=== PATIENT | male | born 1980 | race Caucasian/White ===

== ENCOUNTER 2017-06-21 03:48 | Emergency (ER) | payer MEDICAID ==
[2017-06-21 03:55] VITALS: BP 134/84
[2017-06-21] MEDS ORDERED: AMOXICILLIN TR/POT CLAVULANATE 500-125 MG TAB PO ONE (03:59)
--- NOTE | 2017-06-21 04:02 | ER Document Report ---
ED General - General Chief Complaint: Mouth Problem Stated Complaint: HEAD, MOUTH PAIN Time Seen by Provider: 06/21/17 03:50 Mode of Arrival: Ambulatory Information source: Patient Notes: 36-year-old male presents with complaints of dental pain on the right side right facial pain right ear pain. Patient notes symptoms have been ongoing for 2 weeks patient denies any fevers or chills patient denies any nausea or vomiting TRAVEL OUTSIDE OF THE [place] IN LAST 30 DAYS: No - HPI Onset: Other Onset/Duration: Persistent Quality of pain: Achy Severity: Mild Pain Level: 1 Associated symptoms: Earache, Headache, Other Exacerbated by: Denies Relieved by: Denies Similar symptoms previously: No Recently seen / treated by doctor: No - Related Data Allergies/Adverse Reactions: spiders Allergy (Uncoded 04/11/16 02:33) Past Medical History - Social History Smoking Status: Never Smoker Cigarette use (# per day): No Chew tobacco use (# tins/day): No Smoking Education Provided: No Family History: Reviewed & Not Pertinent Patient has suicidal ideation: No Patient has homicidal ideation: No Pulmonary Medical History: Reports: Hx Asthma, Hx Bronchitis Renal/ Medical History: Denies: Hx Peritoneal Dialysis - Immunizations Immunizations up to date: Yes Hx Diphtheria, Pertussis, Tetanus Vaccination: No Review of Systems - Review of Systems Notes: REVIEW OF SYSTEMS: CONSTITUTIONAL : Denies fever, chills, or sweats. Denies recent illness. EENT: Admits to dental pain right ear pain CARDIOVASCULAR: Denies chest pain. Denies palpitations or racing or irregular heart beat. Denies ankle edema. RESPIRATORY: Denies cough, cold, or chest congestion. Denies shortness of breath, difficulty breathing, or wheezing. GASTROINTESTINAL: Denies abdominal pain or distention. Denies nausea, vomiting , or diarrhea. Denies blood in vomitus, stools, or per rectum. Denies black, tarry stools. Denies constipation. GENITOURINARY: Denies difficulty urinating, painful urination, burning, frequency, blood in urine, or discharge. MUSCULOSKELETAL: Denies back or neck pain or stiffness. Denies joint pain or swelling. SKIN: Denies rash, lesions or sores. HEMATOLOGIC : Denies easy bruising or bleeding. LYMPHATIC: Denies swollen, enlarged glands. NEUROLOGICAL: Admits to headache PSYCHIATRIC: Denies anxiety or stress. Denies depression, suicidal ideation, or homicidal ideation. ALL OTHER SYSTEMS REVIEWED AND NEGATIVE. Dictation was performed using [employer] voice recognition software PHYSICAL EXAMINATION: GENERAL: Well-appearing, well-nourished and in no acute distress. HEAD: Atraumatic, normocephalic. EYES: Pupils equal round and reactive to light, extraocular movements intact, sclera anicteric, conjunctiva are normal. ENT: Decay noted of tooth 6 tender to palpation left TM is clear right TM is pustular NECK: Normal range of motion, supple without lymphadenopathy LUNGS: Breath sounds clear to auscultation bilaterally and equal. No wheezes rales or rhonchi. HEART: Regular rate and rhythm without murmurs ABDOMEN: Soft, nontender, nondistended abdomen. No guarding, no rebound. No masses appreciated. Musculoskeletal: Normal range of motion, no pitting or edema. No cyanosis. NEUROLOGICAL: Cranial nerves grossly intact. Normal speech, normal gait. Normal sensory, motor exams PSYCH: Normal mood, normal affect. SKIN: Warm, Dry, normal turgor, no rashes or lesions noted. Physical Exam - Vital signs Vitals: Temp Pulse Resp BP Pulse Ox 98.6 F 95 18 134/84 H 97 06/21/17 03:52 06/21/17 03:52 06/21/17 03:52 06/21/17 03:52 06/21/17 03:52 Course - Re-evaluation Re-evalutation: 06/21/17 04:01 Patient has obvious decay of his teeth however his right TM is definitely infected. Patient will be started on antibiotics given pain control is otherwise well-appearing no distress After performing a Medical Screening Examination, I estimate there is LOW risk for a DEEP SPACE INFECTION (e.g., NICKY'S ANGINA OR RETROPHARYNGEAL ABSCESS), MENINGITIS, INTRACRANIAL HEMORRHAGE, or AIRWAY COMPROMISE, thus I consider the discharge disposition reasonable. Also, there is no evidence or peritonitis, sepsis, or toxicity. I have reevaluated this patient multiple times and no significant life threatening changes are noted. The patient and I have discussed the diagnosis and risks, and we agree with discharging home with close follow-up with the understanding that symptoms and presentations can change. We also discussed returning to the Emergency Department immediately if new or worsening symptoms occur. We have discussed the symptoms which are most concerning (e.g., changing or worsening pain, trouble swallowing or breathing, neck stiffness or fever) that necessitate immediate return. - Vital Signs Vital signs: Temp Pulse Resp BP Pulse Ox 98.6 F 95 18 134/84 H 97 06/21/17 03:52 06/21/17 03:52 06/21/17 03:52 06/21/17 03:52 06/21/17 03:52 Discharge - Discharge Clinical Impression: Dental caries Otitis media Qualifiers: Otitis media type: unspecified Chronicity: unspecified Laterality: right Qualified Code(s): H66.91 - Otitis media, unspecified, right ear Condition: Stable Disposition: HOME, SELF-CARE Instructions: Otitis Media ([facility]) Additional Instructions: Follow up with your physician tomorrow for further care or return to the ED IMMEDIATELY if symptoms worsen or new concerns occur. If you cannot afford to follow up with your primary care physician a list of low cost clinics have been provided at the end of your discharge papers as well. Prescriptions: Amox Tr/Potassium Clavulanate [Augmentin 875-125 mg Tablet] 1 tab PO BID #20 tablet Tramadol HCl 50 mg PO Q8 #10 tablet
== END 2017-06-21 04:10 | disposition home or self-care (01) ==
LOC: ER 03:48
DX: K02.9 Dental caries, unspecified (principal); K08.89 Other specified disorders of teeth and supporting structures; R51 Headache; H92.01 Otalgia, right ear
CPT/HCPCS: 99283; J3490

== ENCOUNTER 2018-02-10 21:04 | Emergency (ER) | payer MEDICAID ==
[2018-02-10] MEDS: HYDROMORPHONE HCL INJ/PF 2 MG/ML AMPULE IM ONE (21:44)
--- NOTE | 2018-02-10 21:48 | ER Document Report ---
ED General - General Chief Complaint: Abscess Stated Complaint: ARM SWELLING Time Seen by Provider: 02/10/18 21:35 Notes: Patient is a 37-year-old male current every day tobacco user but no chronic medical problems who presents with 4 days of progressively worsening swelling and pain to his right forearm. Patient states that he cut the area while working 4 days ago and since that time has noticed progressively worsening swelling and pain to the area. He describes a severe, constant, throbbing pain. Touching the area moving the arm worsens the pain. Nothing improves the pain. He denies any history of the same. He denies any fever or constitutional symptoms. He has not seen his primary doctor regarding today's concerns. He is right-hand dominant. He denies any limited range of motion of the elbow or hand. TRAVEL OUTSIDE OF THE [place] IN LAST 30 DAYS: No - Related Data Allergies/Adverse Reactions: spiders Allergy (Uncoded 04/11/16 02:33) Past Medical History - General Information source: Patient - Social History Smoking Status: Current Every Day Smoker Cigarette use (# per day): Yes - 1-2 packs per day Smoking Education Provided: Yes - Smoking cessation counseling was provided for 4 minutes at the bedside Frequency of alcohol use: Occasional Drug Abuse: None Lives with: Spouse/Significant other Family History: Reviewed & Not Pertinent Pulmonary Medical History: Reports: Hx Asthma, Hx Bronchitis Renal/ Medical History: Denies: Hx Peritoneal Dialysis - Immunizations Immunizations up to date: Yes Hx Diphtheria, Pertussis, Tetanus Vaccination: No Review of Systems - Review of Systems Notes: Constitutional: Negative for fever. HENT: Negative for sore throat. Eyes: Negative for visual changes. Cardiovascular: Negative for chest pain. Respiratory: Negative for shortness of breath. Gastrointestinal: Negative for abdominal pain, vomiting or diarrhea. Genitourinary: Negative for dysuria. Musculoskeletal: Positive for right forearm pain Skin: Positive for right forearm abscess Neurological: Negative for headaches, weakness or numbness. 10 point ROS negative except as marked above and in HPI. Physical Exam - Vital signs Vitals: Temp Pulse Resp BP Pulse Ox 99.8 F 116 H 18 105/63 98 02/10/18 21:10 02/10/18 21:10 02/10/18 21:10 02/10/18 21:10 02/10/18 21:10 Interpretation: Tachycardic Notes: PHYSICAL EXAMINATION: GENERAL: Appears to be quite uncomfortable but no acute distress HEAD: Atraumatic, normocephalic. EYES: Pupils equal round and reactive to light, extraocular movements intact, sclera anicteric, conjunctiva are normal. ENT: nares patent, oropharynx clear without exudates. Moist mucous membranes. NECK: Normal range of motion, supple without lymphadenopathy LUNGS: Breath sounds clear to auscultation bilaterally and equal. No wheezes rales or rhonchi. HEART: Regular rate and rhythm without murmurs ABDOMEN: Soft, nontender, normoactive bowel sounds. No guarding, no rebound. No masses appreciated. EXTREMITIES: Normal range of motion, no pitting or edema. No cyanosis. NEUROLOGICAL: No focal neurological deficits. Moves all extremities spontaneously and on command. PSYCH: Normal mood, normal affect. SKIN: Warm, Dry, normal turgor, there is a 4 x 3 cm abscess on the proximal right dorsal forearm. Surrounding erythema. No axillary lymphadenopathy. Course - Re-evaluation Re-evalutation: 02/10/18 21:47 Patient presents with a large right forearm abscess started apparently from an abrasion sustained 3 days ago. There is a surrounding area of cellulitis. Patient is otherwise nontoxic in appearance, does not meet sepsis criteria. An incision and drainage was initiated with copious amounts of purulent drainage coming from the wound. However despite giving the patient hydromorphone intramuscularly and numbing the area with lidocaine, the patient was unable to tolerate the procedure. We therefore proceeded with procedural sedation using ketamine. The remainder of the incision and drainage was completed, the wound was irrigated and packed. Patient was started on trimethoprim sulfamethoxazole and cephalexin for coverage of MRSA and strep. There is no evidence of a spreading cellulitis up to the axilla or down to the hand, no indication for hospitalization at this time. At this time will discharge with return precautions and follow-up recommendations. Verbal discharge instructions given a the bedside and opportunity for questions given. Medication warnings reviewed. Patient is in agreement with this plan and has verbalized understanding of return precautions and the need for primary care follow-up in the next 24-72 hours. 02/10/18 22:26 - Vital Signs Vital signs: Temp Pulse Resp BP Pulse Ox 99.8 F 115 H 10 L 116/73 96 02/10/18 21:10 02/10/18 23:05 02/10/18 23:05 02/10/18 23:05 02/10/18 23:05 Procedures - Conscious Sedation Conscious sedation Time started: 22:50 Time completed: 23:10 Consent obtained: Yes Indication: Male male with Prior complications: Procedural sedation Normal healthy pt.: P1. - ASA Classification Airway Evaluation: Normal anatomy Mallampati Classification: Class 1 Used during procedure: Suction available, IV access obtained, Pulse ox on pt., gold nib grinder on pt. Medications administered: Ketamine Reversal agents: None I personally performed/intraservice time: Sedation, Procedure, 30 min or less Complications: No - Incision and Drainage Right Arm Time completed: 23:00 Type: Complex Anesthetic type: 1% Lidocaine mL's of anesthetic: 5 Blade size: 11 I&D procedure: Betadine prep applied, Chlorprep applied, Iodoform packing placed Incision Method: Incision made by scalpel Amount/type of drainage: 30 cc of purulent drainage Notes: 02/10/18 23:47 The area was prepped and draped using standard sterile precautions. After initially making a 1 cm incision and expressing approximately 20 cc of purulent drainage the patient could no longer tolerate the pain of the procedure. He was therefore sedated using ketamine. The incision was then expanded to a cruciate incision. The remainder of the purulent drainage was expressed by direct pressure. The wound was then explored using forceps. 100 cc of saline irrigation was instilled. The wound was then packed with iodoform gauze. Patient tolerated the procedure well. No complications. Discharge - Discharge Clinical Impression: Abscess of right arm, Right arm cellulitis Condition: Good Disposition: HOME, SELF-CARE Additional Instructions: You were seen for an abscess that required drainage. Please clean this area with soap and water twice daily and apply a topical antibiotic. Dress the area after each cleaning. Please return if you develop fever, vomiting, the pain at the site worsens, you notice spreading redness from the area, or you have any other symptoms that are concerning to you. Prescriptions: Cephalexin Monohydrate [Keflex 500 mg Capsule] 500 mg PO Q6H 5 Days capsule Sulfamethoxazole/Trimethoprim [Bactrim Ds Tablet] 2 tab PO BID #28 tablet Forms: Return to Work
[2018-02-10] MEDS: HYDROMORPHONE HCL INJ/PF 2 MG/ML AMPULE ONE (21:49)
[2018-02-10] MEDS ORDERED: KETAMINE HCL INJ 500 MG/10 ML VIAL IV ONE (22:23)
[2018-02-10] MEDS: KETAMINE HCL INJ 500 MG/10 ML VIAL IV ONE (23:00)
[2018-02-11 00:02] VITALS: BP 120/74
[2018-02-11] MEDS: SULFAMETHOXAZOLE/TRIMETHOPRIM 800-160 MG TABLET PO ONE (00:06)
[2018-02-11] MEDS: CEPHALEXIN 500 MG CAPSULE PO ONE (00:06)
[2018-02-11] MEDS: HYDROCODONE/ACETAMINOPHEN 5-325 MG (6 TAB/ER DISP) PO PRN (00:07)
== END 2018-02-11 00:05 | disposition home or self-care (01) ==
LOC: ER 21:04
DX: L02.413 Cutaneous abscess of right upper limb (principal); L03.113 Cellulitis of right upper limb; F17.210 Nicotine dependence, cigarettes, uncomplicated; Z71.6 Tobacco abuse counseling; Z91.038 Other insect allergy status; J45.909 Unspecified asthma, uncomplicated
CPT/HCPCS: 99283; 96372; 10060; A6266; J3490 ×2; J1170

== ENCOUNTER 2018-02-26 19:28 | Inpatient (IN) | payer MEDICAID ==
[2018-02-26] MEDS ORDERED: HYDROMORPHONE HCL INJ/PF 2 MG/ML AMPULE IV ONE ×2 (21:17→23:11)
[2018-02-26] MEDS ORDERED: NORMAL SALINE 1000 ML 1,000 ML IV ONE (21:17)
[2018-02-26 22:04] LABS: ABSOLUTE BASOPHILS # (AUTO) 0.1 10^3/uL (0.0-0.2); ABSOLUTE EOSINOPHILS # (AUTO) 0.3 10^3/uL (0.0-0.6); ABSOLUTE MONOCYTES (AUTO) 1.2 10^3/uL (0.1-1.4); ABSOLUTE NEUT (AUTO) 6.5 10^3/uL (1.7-8.2); BASOPHILS % (AUTO) 0.7 % (0-2); EOSINOPHILS % (AUTO) 2.9 % (0-6); HEMOGLOBIN 12.7 g/dL (13.5-17.0); LYMPHOCYTES % (AUTO) 26.8 % (13-45); MEAN CORPUSCULAR HEMOGLOBIN 27.3 pg (27.0-33.4); MEAN CORPUSCULAR HGB CONC 33.4 g/dL (32.0-36.0); MEAN CORPUSCULAR VOLUME 82 fl (80-97); PLATELET COUNT 370 10^3/uL (150-450); RED BLOOD COUNT 4.65 10^6/uL (4.35-5.55); RED CELL DISTRIBUTION WIDTH 16.3 % (11.5-14.0); SEGMENTED NEUTROPHILS % (AUTO) 58.6 % (42-78); TOTAL CELLS COUNTED % (AUTO) 100 %
[2018-02-26] MEDS ORDERED: VANCOMYCIN HCL INJ 1000 MG VIAL IV ONE (22:14)
[2018-02-26 22:25] LABS: ANION GAP 9 (5-19); BLOOD UREA NITROGEN 11 mg/dL (7-20); CALCIUM 9.1 mg/dL (8.4-10.2); CARBON DIOXIDE 34 mmol/L (22-30); CHLORIDE 93 mmol/L (98-107); GLUCOSE 91 mg/dL (75-110); POTASSIUM 3.8 mmol/L (3.6-5.0); SODIUM 135.6 mmol/L (137-145)
--- NOTE | 2018-02-27 01:24 | ER Document Report ---
ED Wound - General Chief Complaint: Wound Recheck Stated Complaint: WOUND COMPLAINT Time Seen by Provider: 02/26/18 20:57 Mode of Arrival: Ambulatory Information source: Patient Notes: Patient is a 37-year-old male who presents 16 days post I&D to his right forearm. Patient reports that he was seen here in this ED on 422 and had a I&D performed for an abscess. Patient reports that over the last 1-2 days he has been having increasing pain, foul smell and swelling to the area. He denies any fever. He reports that he finished all his antibiotics (Keflex and Bactrim) . Patient denies any past medical history. Patient is not a diabetic. TRAVEL OUTSIDE OF THE [place] IN LAST 30 DAYS: No - Related Data Allergies/Adverse Reactions: spiders Allergy (Uncoded 04/11/16 02:33) Past Medical History - General Information source: Patient - Social History Smoking Status: Current Every Day Smoker Chew tobacco use (# tins/day): No Frequency of alcohol use: None Drug Abuse: None Family History: Reviewed & Not Pertinent Patient has suicidal ideation: No Patient has homicidal ideation: No Pulmonary Medical History: Reports: Hx Asthma, Hx Bronchitis Renal/ Medical History: Denies: Hx Peritoneal Dialysis - Immunizations Immunizations up to date: Yes Hx Diphtheria, Pertussis, Tetanus Vaccination: No Review of Systems - Review of Systems Constitutional: No symptoms reported EENT: No symptoms reported Cardiovascular: No symptoms reported Respiratory: No symptoms reported Gastrointestinal: No symptoms reported Genitourinary: No symptoms reported Male Genitourinary: No symptoms reported Musculoskeletal: See HPI Skin: See HPI Hematologic/Lymphatic: No symptoms reported Neurological/Psychological: No symptoms reported Physical Exam - Vital signs Vitals: Temp Pulse Resp BP Pulse Ox 99.3 F 100 18 122/72 97 02/26/18 19:44 02/26/18 19:44 02/26/18 19:44 02/26/18 19:44 02/26/18 19:44 - Notes Notes: PHYSICAL EXAMINATION: GENERAL: Well-appearing, well-nourished and in no acute distress. HEAD: Atraumatic, normocephalic. EYES: Pupils equal round and reactive to light, extraocular movements intact, conjunctiva are normal. ENT: Nares patent. Moist mucous membranes. NECK: Normal range of motion, supple without lymphadenopathy. LUNGS: Breath sounds clear to auscultation bilaterally and equal. No wheezes rales or rhonchi. HEART: Regular rate and rhythm without murmurs. ABDOMEN: Soft, nontender, nondistended abdomen. No guarding, no rebound. No masses appreciated. Musculoskeletal: Right arm has decreased range of motion at elbow, is able to extend arm but not fully, redness and swelling around site of abscess that was drained on 02/10/18 and extends up into upper arm, there is also tightness in upper arm. NEUROLOGICAL: Cranial nerves grossly intact. Normal speech, normal gait. Normal sensory, motor exams PSYCH: Normal mood, normal affect. SKIN: Warm, Dry, normal turgor, no rashes or lesions noted. Course - Re-evaluation Re-evalutation: 37-year-old male presents with complaint of pain, redness, swelling and foul- smelling odor coming from his right forearm where he had an I&D done 16 days ago. Upon evaluation, patient still has the packing in place from his I&D done here at [facility] on 02/10/18. Patient reports that he did finish his Keflex and Bactrim. Patient denies any fevers but reports that 1-2 days ago he started having increasing redness and pain. There is an obvious infection and cellulitis on initial examination. Patient was medicated with 1 mg of Dilaudid after IV was placed and labs are drawn. Packing was removed and a very foul odor was noted. There was no purulent drainage after the packing was removed however there was blood oozing from the site. The site of the I&D is open. There is redness and induration noted up into the patient's upper arm. I consulted Dr. Anand, general surgery regarding this patient who is requesting that I CT the patient's right arm. CT shows no abscess formation, no gas formation. Will start vancomycin based on patient's weight. Dr. Anand, general surgery agrees to come see patient and admit to medical floor. - Vital Signs Vital signs: Temp Pulse Resp BP Pulse Ox 98.5 F 88 16 111/58 L 96 02/27/18 05:01 02/27/18 02:54 02/27/18 02:54 02/27/18 02:54 02/27/18 02:54 - Laboratory Result Diagrams: 02/26/18 21:55 02/26/18 21:55 Laboratory results interpreted by me: 02/26/18 02/26/18 21:55 21:55 WBC 11.0 H Hgb 12.7 L RDW 16.3 H Sodium 135.6 L Chloride 93 L Carbon Dioxide 34 H Discharge - Discharge Clinical Impression: Cellulitis of arm, right Condition: Stable Disposition: ADMITTED INPATIENT Admitting Provider: Surgicalist Unit Admitted: Medical Floor
--- NOTE | 2018-02-27 02:10 | RADIOLOGY REPORT (SQ) ---
EXAM DESCRIPTION: CT, right upper extremity with IV contrast CLINICAL HISTORY: 37 years Male, evaluate for abscess COMPARISON: None. TECHNIQUE: IV contrast. Axial imaging from of the distal right humeral shaft to the proximal right hand. Coronal and sagittal reformat. This exam was performed according to our departmental dose-optimization program, which includes automated exposure control, adjustment of the mA and/or kV according to patient size and/or use of iterative reconstruction technique. FINDINGS: Moderate subcutaneous soft tissue edema at the level of the right elbow, and proximal right upper arm. No evidence of bone or joint involvement. No abscess and no drainable fluid collection. No fascial gas bubbles. IMPRESSION: Moderate edema/cellulitis of the right upper extremity.
--- NOTE | 2018-02-27 06:21 | PDOC H&P ---
History of Present Illness Admission Date/PCP: 02/27/18 03:06 Patient complains of: Right upper extremity pain and swelling History of Present Illness: ZULLY OLVERA is a 37 year old male who is 2 weeks status post incision and drainage of a right upper extremity abscess. 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 He presented to the emergency department for drainage. The patient had packing placed in the wound. The patient has not removed his packing for 2 weeks. Patient was placed on antibiotics, however he continued to worsen. The patient reports increasing redness, swelling, pain, and drainage. The patient' s packing was removed in the emergency department. Patient denies any overt fevers and chills, chest pain, shortness of breath, dizziness, orthostasis, abdominal pain, nausea, vomiting. Movement of his arm makes the pain worse. Nothing makes it better. The patient reports that it is difficult to straighten his arm. Past Medical History Pulmonary Medical History: Reports: Asthma, Bronchitis Past Surgical History Past Surgical History: Reports: Other - Incision and drainage of a right upper extremity abscess Social History Information Source: Patient Smoking Status: Current Every Day Smoker Hx Recreational Drug Use: No Family History Family History: Reviewed & Not Pertinent Parental Family History Reviewed: Yes Children Family History Reviewed: Yes Sibling(s) Family History Reviewed.: Yes Medication/Allergy Home Medications: Prednisone [Deltasone 20 mg Tablet] 3 tab PO DAILY 4 Days tablet 08/09/16 Albuterol Sulfate [Ventolin HFA] 2 puff IH Q4HP PRN #17 gm 09/17/16 Azithromycin [Zithromax 250 mg Tablet] 250 mg PO ASDIR PRN #6 tablet 09/17/16 Prednisone [Deltasone 20 mg Tablet] 60 mg PO DAILY #12 tablet 09/17/16 Amox Tr/Potassium Clavulanate [Augmentin 875-125 mg Tablet] 1 tab PO BID #20 tablet 06/21/17 Tramadol HCl 50 mg PO Q8 #10 tablet 06/21/17 Cephalexin Monohydrate [Keflex 500 mg Capsule] 500 mg PO Q6H 5 Days capsule Sulfamethoxazole/Trimethoprim [Bactrim Ds Tablet] 2 tab PO BID #28 tablet Allergies/Adverse Reactions: spiders Allergy (Uncoded 04/11/16 02:33) Review of Systems Constitutional: ABSENT: chills, fever(s), headache(s), weakness Eyes: ABSENT: visual disturbances Ears: ABSENT: hearing changes Nose, Mouth, and Throat: ABSENT: sore throat Cardiovascular: ABSENT: chest pain, dyspnea on exertion, palpitations Respiratory: ABSENT: cough, dyspnea, hemoptysis Gastrointestinal: ABSENT: abdominal pain, bloating, constipation Genitourinary: ABSENT: dysuria Musculoskeletal: PRESENT: joint swelling, other - Pain in right upper extremity Integumentary: PRESENT: erythema, wounds - Right upper extremity Neurological: ABSENT: abnormal gait, abnormal speech, confusion, convulsions Psychiatric: ABSENT: anxiety, hallucinations Physical Exam Vital Signs: Temp Pulse Resp BP Pulse Ox 98.5 F 88 16 111/58 L 96 02/27/18 05:01 02/27/18 02:54 02/27/18 02:54 02/27/18 02:54 02/27/18 02:54 General appearance: PRESENT: no acute distress Head exam: PRESENT: atraumatic, normocephalic Eye exam: PRESENT: EOMI, PERRLA. ABSENT: conjunctival injection, scleral icterus Mouth exam: PRESENT: moist, neck supple Neck exam: ABSENT: lymphadenopathy, meningismus, tenderness, thyromegaly, tracheal deviation Respiratory exam: PRESENT: clear to auscultation chin. ABSENT: chest wall tenderness, rales, rhonchi, tachypnea, wheezes Cardiovascular exam: PRESENT: RRR Pulses: PRESENT: normal radial pulses Vascular exam: PRESENT: normal capillary refill. ABSENT: pallor GI/Abdominal exam: PRESENT: soft. ABSENT: distended, hernia, tenderness Rectal exam: PRESENT: deferred Musculoskeletal exam: PRESENT: tenderness, other - Right upper extremity with erythema and induration extending from below the elbow joint to on the bicep anteriorly. There is a small, 2 cm wound to the forearm. There is no purulence. There is no fluctuance.. ABSENT: full ROM - Decreased range of motion of the right elbow Neurological exam: PRESENT: alert, awake, oriented to person, oriented to place , oriented to time, oriented to situation, CN II-XII grossly intact. ABSENT: motor sensory deficit Psychiatric exam: PRESENT: normal mood. ABSENT: agitated, anxious, depressed Skin exam: PRESENT: erythema. ABSENT: cyanosis, jaundice, rash Results Laboratory Results: White blood cell count of 11,000. CT scan reviewed by me. There is no sign of fluid collection, abscess, or subcutaneous emphysema. Impressions: Upper Extremity CT 02/26/18 22:23 IMPRESSION: Moderate edema/cellulitis of the right upper extremity. Assessment & Plan - Diagnosis (1) Cellulitis of arm, right Is this a current diagnosis for this admission?: Yes - Plan Summary Plan Summary: This is a 37-year-old male status post incision and drainage of an abscess of the right upper extremity. She had packing placed, but failed to remove his packing. His erythema and induration have worsened. There is no obvious purulence or fluctuance, but he does have pain, and decreased range of motion. I have reviewed the patient's CT scan personally. I cannot find any obvious drainable fluid collections. Will admit the patient and start him on intravenous antibiotics. The patient does not markedly improve, he may require surgical intervention. Further treatments to be determined, depending on the patient's course.
[2018-02-27] MEDS ORDERED: DEXTROSE 50%-WATER 25 GM/50 ML DISP.SYRIN IV PRN ×2 (06:28)
[2018-02-27] MEDS ORDERED: DEXTROSE 40% GEL 15 GM TUBE PO PRN ×2 (06:28)
[2018-02-27] MEDS ORDERED: GLUCAGON,HUMAN RECOMB 1 MG INJ SUBCUT PRN (06:28)
[2018-02-27] MEDS ORDERED: ONDANSETRON HCL INJ/PF 4 MG/2 ML SDV IV PRN (06:29)
[2018-02-27] MEDS ORDERED: VANCOMYCIN HCL 0 MG in DEXTROSE 5%-WATER 250 ML IV NR (06:29)
[2018-02-27] MEDS ORDERED: PIPERACILLIN/TAZOBACTAM 3.375 GM VIAL IV PRN (06:40)
[2018-02-27] MEDS: MORPHINE SULFATE 10 MG/ML INJ IV PRN ×4 (07:23→23:05)
[2018-02-27] MEDS: PIPERACILLIN SODIUM/TAZOBACTAM 3.375 GM in NORMAL SALINE 100 ML IV SCH ×4 (07:24→23:11)
[2018-02-27] MEDS: POTASSI CL 20 MEQ/D5-1/2NS 1L 1,000 ML IV PRN (08:44)
[2018-02-27] MEDS: VANCOMYCIN HCL 1,250 MG in DEXTROSE 5%-WATER 250 ML IV SCH ×2 (10:13→18:01)
[2018-02-27] MEDS: ENOXAPARIN SODIUM INJ 40 MG/0.4 ML DISP.SYRIN SUBCUT SCH (10:52)
[2018-02-27] MEDS: DOCUSATE SODIUM 100 MG CAPSULE PO SCH ×2 (10:52→18:34)
[2018-02-28] MEDS: VANCOMYCIN HCL 1,250 MG in DEXTROSE 5%-WATER 250 ML IV SCH ×3 (02:21→18:08)
[2018-02-28] MEDS: MORPHINE SULFATE 10 MG/ML INJ IV PRN ×5 (04:12→21:07)
[2018-02-28] MEDS: PIPERACILLIN SODIUM/TAZOBACTAM 3.375 GM in NORMAL SALINE 100 ML IV SCH ×3 (05:58→17:19)
[2018-02-28 07:33] LABS: ABSOLUTE BASOPHILS # (AUTO) 0.1 10^3/uL (0.0-0.2); ABSOLUTE EOSINOPHILS # (AUTO) 0.5 10^3/uL (0.0-0.6); ABSOLUTE LYMPHOCYTES (AUTO) 2.8 10^3/uL (0.5-4.7); ABSOLUTE MONOCYTES (AUTO) 1.1 10^3/uL (0.1-1.4); ABSOLUTE NEUT (AUTO) 3.9 10^3/uL (1.7-8.2); BASOPHILS % (AUTO) 1.1 % (0-2); EOSINOPHILS % (AUTO) 6.5 % (0-6); HEMATOCRIT 36.2 % (37.9-51.0); HEMOGLOBIN 12.2 g/dL (13.5-17.0); MEAN CORPUSCULAR HEMOGLOBIN 27.2 pg (27.0-33.4); MEAN CORPUSCULAR HGB CONC 33.7 g/dL (32.0-36.0); MEAN CORPUSCULAR VOLUME 81 fl (80-97); MONOCYTES % (AUTO) 12.5 % (3-13); PLATELET COUNT 355 10^3/uL (150-450); RED BLOOD COUNT 4.47 10^6/uL (4.35-5.55); RED CELL DISTRIBUTION WIDTH 16.3 % (11.5-14.0); SEGMENTED NEUTROPHILS % (AUTO) 46.9 % (42-78); TOTAL CELLS COUNTED % (AUTO) 100 %; WHITE BLOOD COUNT 8.4 10^3/uL (4.0-10.5)
[2018-02-28] MEDS: KETOROLAC TROMETHAMINE INJ/PF 30 MG/1 ML SDV IV PRN ×2 (07:44→18:04)
[2018-02-28 07:56] LABS: ANION GAP 10 (5-19); BLOOD UREA NITROGEN 10 mg/dL (7-20); CALCIUM 9.5 mg/dL (8.4-10.2); CARBON DIOXIDE 27 mmol/L (22-30); CHLORIDE 103 mmol/L (98-107); GLUCOSE 79 mg/dL (75-110); POTASSIUM 4.6 mmol/L (3.6-5.0); SODIUM 139.7 mmol/L (137-145)
[2018-02-28] MEDS: POTASSI CL 20 MEQ/D5-1/2NS 1L 1,000 ML IV PRN (09:49)
[2018-02-28] MEDS: DOCUSATE SODIUM 100 MG CAPSULE PO SCH ×2 (09:59→17:33)
[2018-02-28] MEDS: ENOXAPARIN SODIUM INJ 40 MG/0.4 ML DISP.SYRIN SUBCUT SCH (09:59)
--- NOTE | 2018-02-28 10:42 | PDOC PROGRESS REPORT ---
Subjective Progress Note for:: 02/28/18 Subjective:: Arm still hurts but improved from yesterday. Able to extend the arm better. Swelling has improved. Reason For Visit: CELLULITIS Physical Exam Vital Signs: Temp Pulse Resp BP Pulse Ox 99.1 F 73 16 102/57 L 100 02/28/18 08:25 02/28/18 08:25 02/28/18 08:25 02/28/18 08:25 02/28/18 08:25 Intake & Output 02/27/18 02/28/18 03/01/18 06:59 06:59 06:59 Intake Total 150 Balance 150 Weight 76.4 kg General appearance: PRESENT: no acute distress, cooperative Respiratory exam: PRESENT: rhonchi, wheezes Cardiovascular exam: PRESENT: RRR Extremities exam: PRESENT: other - Wound is clean with no significant drainage. Patient has diffuse arm swelling centered at the antecubital region but no region of fluctuance. He has palpable cord with overlying erythema at his anterior upper forearm and anterior lower upper arm. Patient notes that this area of the palpable cord has improved in the past several days. And he has mild tenderness. Patient is unable to fully extend the right arm but he notes that his range of motion has markedly improved from yesterday. Results Laboratory Results: 02/28/18 06:49 02/28/18 06:49 02/28/18 02/28/18 06:49 06:49 WBC 8.4 RBC 4.47 Hgb 12.2 L Hct 36.2 L MCV 81 MCH 27.2 MCHC 33.7 RDW 16.3 H Plt Count 355 Seg Neutrophils % 46.9 Lymphocytes % 33.0 Monocytes % 12.5 Eosinophils % 6.5 H Basophils % 1.1 Absolute Neutrophils 3.9 Absolute Lymphocytes 2.8 Absolute Monocytes 1.1 Absolute Eosinophils 0.5 Absolute Basophils 0.1 Sodium 139.7 Potassium 4.6 Chloride 103 Carbon Dioxide 27 Anion Gap 10 BUN 10 Creatinine 0.73 Est GFR ( Amer) > 60 Est GFR (Non-Af Amer) > 60 Glucose 79 Calcium 9.5 Impressions: Upper Extremity CT 02/26/18 22:23 IMPRESSION: Moderate edema/cellulitis of the right upper extremity. Assessment & Plan - Diagnosis (1) Thrombophlebitis arm Is this a current diagnosis for this admission?: Yes Plan: Due to his antecubital fossa infection. The infection appears to be under control now that the foreign body (gauze packing) is now removed. Patient has evidence of thrombophlebitis but as per the patient it is steadily improving. I will ask our vascular surgeon to evaluate. In the meantime continue IV antibiotics and arm elevation. (2) Bronchitis Is this a current diagnosis for this admission?: Yes Plan: Patient is a heavy smoker and although he is asymptomatic he has wheezing and rhonchi on exam. Will ask hospitalist for assistance in managing this patient.
[2018-02-28 11:29] LABS: VANCOMYCIN,TROUGH 25.7 ug/mL (5.0-20.0)
--- NOTE | 2018-02-28 11:36 | RADIOLOGY REPORT (SQ) ---
EXAM DESCRIPTION: CHEST 2 VIEWS COMPLETED DATE/TIME: 02/28/2018 11:04 am REASON FOR STUDY: wheezing COMPARISON: August 2016 EXAM PARAMETERS: NUMBER OF VIEWS: two views TECHNIQUE: Digital Frontal and Lateral radiographic views of the chest acquired. RADIATION DOSE: NA LIMITATIONS: none FINDINGS: LUNGS AND PLEURA: No opacities, masses or pneumothorax. No pleural effusion. MEDIASTINUM AND HILAR STRUCTURES: No masses or contour abnormalities. HEART AND VASCULAR STRUCTURES: Heart normal size. No evidence for failure. BONES: No acute findings. HARDWARE: None in the chest. OTHER: No other significant finding. IMPRESSION: NO ACUTE RADIOGRAPHIC FINDING IN THE CHEST. TECHNICAL DOCUMENTATION: JOB ID: [id number] [employer]- All Rights Reserved Reading location - IP/workstation name: [email or web address]
[2018-02-28] MEDS ORDERED: IPRATROPIUM/ALBUTEROL 0.5-2.5 MG/3 ML AMPUL NEB PRN (12:09)
[2018-02-28] MEDS ORDERED: NICOTINE 21 MG/24 HR PATCH.TD24 TD ONE (12:30)
--- NOTE | 2018-02-28 12:49 | PDOC CONSULTATION ---
Consultation Consult Date: 02/28/18 Attending physician:: KATIE MARTIN Consult reason:: Wheezing History of Present Illness Admission Date/PCP: 02/27/18 03:06 History of Present Illness: ZULLY OLVERA is a 37 year old male 2 weeks status post incision and drainage of the right upper extremity abscess. It appears patient returned to the emergency room with increasing redness, swelling, pain and drainage and is found to have an infected wound hospitalist service is being requested due to wheezing and bronchospasm. Patient does give a history of smoking 1-1/2 pack of cigarettes a day. He seems to minimize any prior history of respiratory disease however he tells me that he has a nebulizer at home that he does not use as he feels he does not need it. He denies any difficulty breathing currently and says is just hungry as he has been n.p.o. for his procedure. Past Medical History Pulmonary Medical History: Reports: Asthma, Bronchitis Psychiatric Medical History: Reports: None Traumatic Medical History: Reports: None Past Surgical History Past Surgical History: Reports: Other - Incision and drainage of a right upper extremity abscess Social History Smoking Status: Current Every Day Smoker Cigarettes Packs Per Day: 1.5 Frequency of Alcohol Use: None Hx Recreational Drug Use: No Hx Prescription Drug Abuse: No - Advance Directive Resuscitation Status: Full Code Family History Family History: Reviewed & Not Pertinent Parental Family History Reviewed: No Children Family History Reviewed: NA Sibling(s) Family History Reviewed.: Unknown Medication/Allergy Home Medications: No Home Medications 02/27/18 Allergies/Adverse Reactions: spiders Allergy (Uncoded 04/11/16 02:33) Review of Systems Constitutional: ABSENT: chills, fever(s), headache(s), weight gain, weight loss Cardiovascular: ABSENT: chest pain, dyspnea on exertion, edema, orthropnea, palpitations Respiratory: PRESENT: other - wheezing Gastrointestinal: ABSENT: abdominal pain, constipation, diarrhea, hematemesis, hematochezia, nausea, vomiting Genitourinary: ABSENT: dysuria, hematuria Musculoskeletal: PRESENT: as per HPI Neurological: ABSENT: abnormal gait, abnormal speech, confusion, dizziness, focal weakness, syncope Psychiatric: ABSENT: anxiety, depression, homidical ideation, suicidal ideation Physical Exam Vital Signs: Temp Pulse Resp BP Pulse Ox 98.2 F 73 16 97/58 L 97 02/28/18 11:53 02/28/18 11:53 02/28/18 08:25 02/28/18 11:53 02/28/18 11:53 Intake & Output 02/27/18 02/28/18 03/01/18 06:59 06:59 06:59 Intake Total 150 Balance 150 Weight 76.4 kg General appearance: PRESENT: no acute distress, thin Head exam: PRESENT: atraumatic, normocephalic Eye exam: PRESENT: conjunctiva pink, EOMI, PERRLA. ABSENT: scleral icterus Ear exam: PRESENT: normal external ear exam Mouth exam: PRESENT: moist, tongue midline Neck exam: ABSENT: carotid bruit, JVD, lymphadenopathy, thyromegaly Respiratory exam: PRESENT: rales, rhonchi, wheezes - inspiratory. ABSENT: accessory muscle use, chest wall tenderness Cardiovascular exam: PRESENT: RRR. ABSENT: diastolic murmur, rubs, systolic murmur Pulses: PRESENT: normal dorsalis pedis pul Vascular exam: PRESENT: normal capillary refill GI/Abdominal exam: PRESENT: normal bowel sounds, soft. ABSENT: distended, guarding, mass, organolmegaly, rebound, tenderness Rectal exam: PRESENT: deferred Extremities exam: PRESENT: other - RUE covered with dressing. ABSENT: calf tenderness, clubbing, pedal edema Neurological exam: PRESENT: alert, awake, oriented to person, oriented to place , oriented to time, oriented to situation, CN II-XII grossly intact. ABSENT: motor sensory deficit Psychiatric exam: PRESENT: appropriate affect, normal mood. ABSENT: homicidal ideation, suicidal ideation Skin exam: PRESENT: dry, intact, warm. ABSENT: cyanosis, rash Results Laboratory Results: 02/28/18 06:49 02/28/18 06:49 02/28/18 02/28/18 06:49 06:49 WBC 8.4 RBC 4.47 Hgb 12.2 L Hct 36.2 L MCV 81 MCH 27.2 MCHC 33.7 RDW 16.3 H Plt Count 355 Seg Neutrophils % 46.9 Lymphocytes % 33.0 Monocytes % 12.5 Eosinophils % 6.5 H Basophils % 1.1 Absolute Neutrophils 3.9 Absolute Lymphocytes 2.8 Absolute Monocytes 1.1 Absolute Eosinophils 0.5 Absolute Basophils 0.1 Sodium 139.7 Potassium 4.6 Chloride 103 Carbon Dioxide 27 Anion Gap 10 BUN 10 Creatinine 0.73 Est GFR ( Amer) > 60 Est GFR (Non-Af Amer) > 60 Glucose 79 Calcium 9.5 Impressions: Upper Extremity CT 02/26/18 22:23 IMPRESSION: Moderate edema/cellulitis of the right upper extremity. Chest X-Ray 02/28/18 00:00 IMPRESSION: NO ACUTE RADIOGRAPHIC FINDING IN THE CHEST. Assessment & Plan - Diagnosis (1) COPD (chronic obstructive pulmonary disease) Is this a current diagnosis for this admission?: Yes Plan: with mild exacerbation, will start n Duoned prn. No indication for steroids at this time (2) Cellulitis of arm, right Is this a current diagnosis for this admission?: Yes - Time Time Spent: 30 to 50 Minutes Smoking Cessation Education: 3 to 10 minutes Anticipated discharge: Home Within: within 72 hours - Inpatient Certification Based on my medical assessment, after consideration of the patient's comorbidities, presenting symptoms, or acuity I expect that the services needed warrant INPATIENT care.: Yes Medical Necessity: Need for IV Antibiotics, Need for Surgery
[2018-03-01] MEDS: KETOROLAC TROMETHAMINE INJ/PF 30 MG/1 ML SDV IV PRN (00:21)
[2018-03-01] MEDS: PIPERACILLIN SODIUM/TAZOBACTAM 3.375 GM in NORMAL SALINE 100 ML IV SCH ×2 (00:21→05:15)
[2018-03-01] MEDS: POTASSI CL 20 MEQ/D5-1/2NS 1L 1,000 ML IV PRN (00:21)
[2018-03-01] MEDS: MORPHINE SULFATE 10 MG/ML INJ IV PRN ×2 (01:30→05:16)
[2018-03-01] MEDS ORDERED: VANCOMYCIN HCL 1,250 MG in DEXTROSE 5%-WATER 250 ML IV SCH (06:00)
[2018-03-01] MEDS ORDERED: HYDROMORPHONE HCL INJ/PF 2 MG/ML AMPULE IV PRN (08:45)
[2018-03-01] MEDS: DOCUSATE SODIUM 100 MG CAPSULE PO SCH (09:20)
[2018-03-01] MEDS: ENOXAPARIN SODIUM INJ 40 MG/0.4 ML DISP.SYRIN SUBCUT SCH (09:20)
[2018-03-01 09:35] VITALS: BP 125/76
[2018-03-01] MEDS ORDERED: NICOTINE 21 MG/24 HR PATCH.TD24 TD SCH (10:00)
--- NOTE | 2018-03-01 14:13 | PDOC PROGRESS REPORT ---
Subjective Progress Note for:: 03/01/18 Subjective:: This is a 37-year-old male admitted with cellulitis of the right upper extremity. He also appears to have superficial thrombophlebitis. She has been receiving antibiotics, and his symptoms are improving. His erythema and induration have improved significantly. He still has a palpable cord consistent with thrombophlebitis. He still has significant amounts of pain and difficulty with range of motion. Denies any chest pain, shortness of breath, dizziness, orthostasis, nausea, vomiting, abdominal pain, paresthesias, malaise , fatigue, fevers, or chills. Reason For Visit: CELLULITIS Physical Exam Vital Signs: Temp Pulse Resp BP Pulse Ox 98.6 F 86 18 125/76 98 03/01/18 08:06 03/01/18 11:07 03/01/18 11:07 03/01/18 08:06 03/01/18 11:07 Intake & Output 02/28/18 03/01/18 03/02/18 06:59 06:59 06:59 Intake Total 150 2600 Balance 150 2600 Weight 76.4 kg 80.3 kg General appearance: PRESENT: no acute distress Head exam: PRESENT: atraumatic, normocephalic Eye exam: PRESENT: EOMI, PERRLA. ABSENT: conjunctival injection, scleral icterus Teeth exam: ABSENT: poor dentation Neck exam: ABSENT: lymphadenopathy, meningismus, tenderness, thyromegaly, tracheal deviation Respiratory exam: PRESENT: clear to auscultation chin. ABSENT: chest wall tenderness, rales, rhonchi Cardiovascular exam: PRESENT: RRR Pulses: PRESENT: normal radial pulses Vascular exam: PRESENT: normal capillary refill. ABSENT: pallor GI/Abdominal exam: PRESENT: normal bowel sounds, soft. ABSENT: distended, guarding, Rasheed's sign, tenderness Rectal exam: PRESENT: deferred Extremities exam: PRESENT: other - Decreased range of motion at the right elbow. Open wound without signs of purulence and erythema is much improved. Operable cord extending from the antecubital fossa up the bicep. Neurological exam: PRESENT: alert, awake, oriented to person, oriented to place , oriented to time Psychiatric exam: PRESENT: agitated. ABSENT: anxious, depressed Skin exam: ABSENT: cyanosis, jaundice Results Laboratory Results: 02/28/18 06:49 02/28/18 06:49 Impressions: Upper Extremity CT 02/26/18 22:23 IMPRESSION: Moderate edema/cellulitis of the right upper extremity. Chest X-Ray 02/28/18 00:00 IMPRESSION: NO ACUTE RADIOGRAPHIC FINDING IN THE CHEST. Assessment & Plan - Diagnosis (1) Cellulitis of arm, right Is this a current diagnosis for this admission?: Yes - Plan Summary Plan Summary: This is a 37-year-old male with cellulitis and thrombophlebitis of the right arm. The patient is awaiting an evaluation by Dr. Sahni. Continue current medications (antibiotics and Lovenox). Cellulitis is improving. Home soon if no further intervention is necessary for the patient's thrombophlebitis.
== END 2018-03-01 11:54 | disposition left against medical advice (07) | DRG 603 ==
LOC: ER 19:28 → UNDOADMIN 02-27 03:02 → EH 02-27 03:02 → 2S 02-27 09:19
PROVIDERS: ATTEND Surgery
DX: L03.113 Cellulitis of right upper limb (principal); F17.210 Nicotine dependence, cigarettes, uncomplicated; J44.9 Chronic obstructive pulmonary disease, unspecified; J40 Bronchitis, not specified as acute or chronic; I80.8 Phlebitis and thrombophlebitis of other sites; Z91.038 Other insect allergy status; Z91.14 Patient's other noncompliance with medication regimen; Z98.890 Other specified postprocedural states
CPT/HCPCS: 36415; 71046; 80048; 80202; 85025; 87040; 96361; 96365; 96366; 96375; 96376; 99284; J1170; J1885; J2270; J2543; J3370; J3480; J7030; J7060

== ENCOUNTER 2018-08-05 01:50 | Emergency (ER) | payer MEDICAID ==
[2018-08-05 02:18] VITALS: BP 116/66
[2018-08-05] MEDS ORDERED: HYDROCODONE/ACETAMINOPHEN 5-325 MG (6 TAB/ER DISP) PO PRN (03:19)
[2018-08-05] MEDS ORDERED: MORPHINE SULFATE IR 15 MG TABLET PO ONE (03:19)
[2018-08-05] MEDS ORDERED: ACETAMINOPHEN 325 MG TABLET PO ONE (03:19)
[2018-08-05] MEDS ORDERED: IBUPROFEN 600 MG TABLET PO ONE (03:19)
[2018-08-05] MEDS ORDERED: CLINDAMYCIN HCL 150 MG CAPSULE PO ONE (03:19)
--- NOTE | 2018-08-05 03:24 | ER Document Report ---
ED General - General Chief Complaint: Toothache Stated Complaint: TOOTH PAIN Time Seen by Provider: 08/05/18 02:39 Notes: Patient is a 38-year-old male without chronic medical problems, current everyday smoker who presents with a fractured tooth. Patient states that he was eating, bit down and felt his tooth break. He states that since that time he has had a severe, throbbing, constant pain to the area. He has tried over- the-counter pain medications with no relief. Attempting to swallow, drink or eat worsens the pain. States that he knew the tooth had a cavity but has not had it addressed by his dentist. Denies any difficulty breathing or swallowing. No fever or constitutional symptoms. TRAVEL OUTSIDE OF THE [place] IN LAST 30 DAYS: No - Related Data Allergies/Adverse Reactions: spiders Allergy (Uncoded 04/11/16 02:33) Past Medical History - General Information source: Patient - Social History Smoking Status: Current Every Day Smoker Frequency of alcohol use: None Drug Abuse: None Lives with: Family Family History: Reviewed & Not Pertinent Patient has suicidal ideation: No Patient has homicidal ideation: No Pulmonary Medical History: Reports: Hx Asthma, Hx Bronchitis Renal/ Medical History: Denies: Hx Peritoneal Dialysis Past Surgical History: Reports: Other - Incision and drainage of a right upper extremity abscess - Immunizations Immunizations up to date: Yes Hx Diphtheria, Pertussis, Tetanus Vaccination: No Review of Systems - Review of Systems Notes: Constitutional: Negative for fever. HENT: Positive for dental pain Eyes: Negative for visual changes. Cardiovascular: Negative for chest pain. Respiratory: Negative for shortness of breath. Gastrointestinal: Negative for abdominal pain, vomiting or diarrhea. Genitourinary: Negative for dysuria. Musculoskeletal: Negative for back pain. Skin: Negative for rash. Neurological: Negative for headaches, weakness or numbness. 10 point ROS negative except as marked above and in HPI. Physical Exam - Vital signs Vitals: Temp Pulse Resp BP Pulse Ox 98.7 F 81 16 116/66 98 08/05/18 02:13 08/05/18 02:13 08/05/18 02:13 08/05/18 02:13 08/05/18 02:13 Interpretation: Normal Notes: PHYSICAL EXAMINATION: GENERAL: Appears uncomfortable but in no acute distress HEAD: Atraumatic, normocephalic. EYES: sclera anicteric, conjunctiva are normal. ENT: Moist mucous membranes. No facial swelling. Partial fracture of tooth # 14 without surrounding induration or edema. NECK: Normal range of motion LUNGS: Normal work of breathing HEART: 2+ radial pulses bilaterally EXTREMITIES: no pitting or edema. No cyanosis. NEUROLOGICAL: No focal neurological deficits. Moves all extremities spontaneously and on command. PSYCH: Normal mood, normal affect. SKIN: Warm, Dry, normal turgor, no rashes or lesions noted. Course - Re-evaluation Re-evalutation: 08/05/18 03:23 Presentation is most consistent with a fractured tooth #14. Airway is patent. Vitals within normal limits. Patient is able swallow without any difficulty. There is no significant facial swelling. No evidence of Michael angina, apical abscess, or airway obstruction. Patient will be started on antibiotics. I've instructed to follow-up with dentistry as earliest ability for definitive management. At this time will discharge with return precautions and follow-up recommendations. Verbal discharge instructions given a the bedside and opportunity for questions given. Medication warnings reviewed. Patient is in agreement with this plan and has verbalized understanding of return precautions and the need for primary care follow-up in the next 24-72 hours. - Vital Signs Vital signs: Temp Pulse Resp BP Pulse Ox 98.7 F 81 16 116/66 98 08/05/18 02:13 08/05/18 02:13 08/05/18 02:13 08/05/18 02:13 08/05/18 02:13 Discharge - Discharge Clinical Impression: Fractured tooth Qualifiers: Encounter type: initial encounter Fracture type: closed Qualified Code(s): S02.5XXA - Fracture of tooth (traumatic), initial encounter for closed fracture Condition: Good Disposition: HOME, SELF-CARE Additional Instructions: You have been seen for dental pain. It is very important that you follow-up with a dentist for definitive care. Please return if you develop fever greater than 101, swelling in your face, vomiting, difficulty breathing or swallowing, or any other symptoms that are concerning to you. For pain you should take ibuprofen 600 mg every 6 hours as needed. Prescriptions: Clindamycin HCl 300 mg PO TID #30 capsule
== END 2018-08-05 03:34 | disposition home or self-care (01) ==
LOC: ER 01:50
DX: S02.5XXA Fracture of tooth (traumatic), initial encounter for closed fracture (principal); K08.9 Disorder of teeth and supporting structures, unspecified; F17.200 Nicotine dependence, unspecified, uncomplicated; X58.XXXA Exposure to other specified factors, initial encounter; Y93.9 Activity, unspecified
CPT/HCPCS: 99282; J3490 ×3

== ENCOUNTER 2018-08-05 22:51 | Emergency (ER) | payer MEDICAID ==
[2018-08-05 23:32] VITALS: BP 139/85
[2018-08-05] MEDS ORDERED: HYDROCODONE/ACETAMINOPHEN 5-325 MG (6 TAB/ER DISP) PO PRN (23:44)
--- NOTE | 2018-08-05 23:50 | ER Document Report ---
ED Oral Problem - General Chief Complaint: Toothache Stated Complaint: TOOTHACHE Time Seen by Provider: 08/05/18 23:33 Mode of Arrival: Ambulatory Information source: Patient Notes: 38-year-old male presented to ED for dental pain to tooth number #14 with a large cavity in part of the tooth has been broken off. There is tenderness to the jaw surrounding the tooth no centers in terms of Michael's angina. Patient has minimal swelling to the jaw. Patient is alert and oriented respirations regular and unlabored speaking in full sentences. Patient states he smokes a pack a day and understands that he cannot smoke any cigarettes until after this tooth is treated by a dentist and if they pulled the tooth at least 10 days after that. Patient was seen yesterday and started on clindamycin and instructed to call the dentist today to have an appointment. He states he did call the dentist and has an appointment for next Sunday. TRAVEL OUTSIDE OF THE [place] IN LAST 30 DAYS: No - HPI Patient complains to provider of: Toothache Onset: Other - States the pain started a while ago but it became much worse yesterday when part of the tooth broke off. Quality of pain: Sharp, Throbbing Severity: Severe Pain Level: 5 Swollen jaw/face: Mild Associated symptoms: Dental decay, Toothache Worsened by: Other - He states it hurts to eat or drink but has not iced soda at the bedside. Relieved by: Nothing Similar symptoms previously: Yes Recently seen / treated by doctor/dentist: Yes - Related Data Allergies/Adverse Reactions: spiders Allergy (Uncoded 04/11/16 02:33) Past Medical History - General Information source: Patient - Social History Smoking Status: Current Every Day Smoker Cigarette use (# per day): Yes - ppd Chew tobacco use (# tins/day): No Smoking Education Provided: Yes - 4min Family History: Reviewed & Not Pertinent Patient has suicidal ideation: No Patient has homicidal ideation: No - Past Medical History Cardiac Medical History: Reports: None Pulmonary Medical History: Reports: Hx Asthma, Hx Bronchitis EENT Medical History: Reports: None Neurological Medical History: Reports: None Endocrine Medical History: Reports: None Renal/ Medical History: Reports: None Malignancy Medical History: Reports None GI Medical History: Reports: None Musculoskeletal Medical History: Reports None Skin Medical History: Reports Hx Cellulitis Psychiatric Medical History: Reports: None Traumatic Medical History: Reports: None Infectious Medical History: Reports: None Past Surgical History: Reports: Other - Incision and drainage of a right upper extremity abscess - Immunizations Immunizations up to date: Yes Hx Diphtheria, Pertussis, Tetanus Vaccination: No Review of Systems - Review of Systems Constitutional: No symptoms reported EENT: Mouth pain, Dental problem Cardiovascular: No symptoms reported Respiratory: No symptoms reported Gastrointestinal: No symptoms reported Genitourinary: No symptoms reported Male Genitourinary: No symptoms reported Musculoskeletal: No symptoms reported Skin: No symptoms reported Hematologic/Lymphatic: No symptoms reported Neurological/Psychological: No symptoms reported Physical Exam - Vital signs Vitals: Temp Pulse BP Pulse Ox 99.3 F 126 H 139/85 H 98 08/05/18 23:30 08/05/18 23:30 08/05/18 23:30 08/05/18 23:30 Interpretation: Hypertensive, Tachycardic - 105 - General General appearance: Appears well, Alert - HEENT Head: Normocephalic, Atraumatic Eyes: Normal Pupils: PERRL Ears: Normal External canal: Normal Tympanic membrane: Normal Sinus: Normal Nasal: Normal Mouth/Lips: Caries Mucous membranes: Normal Teeth diagram: 1 - Large cavity with a large portion of the tooth missing. He states that the tooth broke yesterday while he was eating and he has had pain since then. Pharynx: Normal Neck: Normal - Respiratory Respiratory status: No respiratory distress Chest status: Nontender Breath sounds: Normal Chest palpation: Normal - Cardiovascular Rhythm: Regular Heart sounds: Normal auscultation Murmur: No - Abdominal Inspection: Normal Distension: No distension Bowel sounds: Normal Tenderness: Nontender Organomegaly: No organomegaly - Back Back: Normal, Nontender - Extremities General upper extremity: Normal inspection, Nontender, Normal color, Normal ROM , Normal temperature General lower extremity: Normal inspection, Nontender, Normal color, Normal ROM , Normal temperature, Normal weight bearing. No: Kathie's sign - Neurological Neuro grossly intact: Yes Cognition: Normal Orientation: AAOx4 [place] Coma Scale Eye Opening: Spontaneous [place] Coma Scale Verbal: Oriented [place] Coma Scale Motor: Obeys Commands T[place]anda Coma Scale Total: 15 Speech: Normal Motor strength normal: LUE, RUE, LLE, RLE Sensory: Normal - Psychological Associated symptoms: Normal affect, Normal mood - Skin Skin Temperature: Warm Skin Moisture: Dry Skin Color: Normal Course - Re-evaluation Re-evalutation: 08/05/18 23:58 Patient was given a [place] dispense pack and viscous lidocaine for his dental pain. It was explained to patient that he would not be getting any more narcotics for this dental pain he needs to use ibuprofen every 6 hours for his dental pain. He needs to take the antibiotics as prescribed. He needs to follow-up with the dentist as soon as possible. Patient does not have any signs or symptoms of Michael's angina. - Vital Signs Vital signs: Temp Pulse Resp BP Pulse Ox 99.3 F 105 H 16 139/85 H 98 08/05/18 23:30 08/06/18 00:08 08/06/18 00:08 08/05/18 23:30 08/05/18 23:30 Discharge - Discharge Clinical Impression: Pain due to dental caries Condition: Stable Disposition: HOME, SELF-CARE Instructions: Family Physicians / Practices Additional Instructions: TOOTHACHE: Your pain is due to dental decay. The tooth must be repaired in order for you to feel better. You will, therefore, be referred to a dentist. We do not have dentists on the staff at [facility]. Severe swelling or drainage around a tooth usually means a dental abscess. This also requires evaluation and treatment by the dentist, but antibiotics may be prescribed while awaiting dental treatment. You should be rechecked immediately if you develop major swelling of the face, increasing pain, a lump in the jaw or gums, headache, difficulty swallowing, or fever. ORAL NARCOTIC MEDICATION: This is all the narcotic you will be given for this toothache. Please ensure that you take ibuprofen do not smoke and follow-up with the dentist. You have been given a [place] dispense pack for pain control. This medication is a narcotic. It's best taken with food, as nausea can result if taken on an empty stomach. Don't operate machinery or drive within six hours of taking this medication. Do not combine this medicine with alcohol, or with any medication which can cause sedation (such as cold tablets or sleeping pills) unless you get permission from the physician. Narcotics tend to cause constipation. If possible, drink plenty of fluids and eat a diet high in fiber and fruits. Please be aware that prescription narcotics also have the potential for abuse. People become addicted to these medications because of the general sense of wellbeing that they induce. This feeling along with a significant reduction in tension, anxiety, and aggression provides a stimulating seductive quality to these drugs. Once your pain is under control, we encourage you to discard your unused narcotics. Please take ibuprofen every 6 hours up to 600 mg by mouth for your dental pain only take the narcotic when pain is severe. You have been provided with lidocaine viscous jelly. You can put 1/2-1 mL on your finger and rub it around the tooth every 3-4 hours. Do not use this more often than every 3-4 hours as this also numb your tongue and you do not want to choke on it. CLINDAMYCIN: Continue your prescription that you were given yesterday for the clindamycin until it is completed You have been given a prescription for the antibiotic clindamycin. It is often prescribed for infections in the mouth, such as dental infections or abscesses, and for skin infections due to MRSA. It's important that you take all the medication, unless instructed otherwise by your physician. Failure to complete the entire course can result in relapse of your condition. Common side effects of antibiotics include nausea, intestinal cramping, or diarrhea. Women may develop vaginal yeast infections, and babies can get yeast (thrush) in the mouth following the use of antibiotics. Contact your physician if you develop significant side effects from this medication. Allergy to this antibiotic can result in hives, wheezing, faintness, or itching. If symptoms of allergy occur, stop the medication and call the doctor. FOLLOW-UP CARE: You have been referred for follow-up care to the dentists listed below. Call the dentists office for an appointment as you were instructed or within the next two days. If you experience worsening or a significant change in your symptoms, notify the physician immediately or return to the Emergency Department at any time for re-evaluation. [address] Sunday mornings, by appointment [facility] [address] [place] [address] [facility] [address] [facility] [address] [facility] [address] [email or web address] [address] [place] [address] Sunday- 8:00am to 5:00 pm Will see patients from other [facility]. Charges based on income and family size and accepts Medicare, Medicaid, and Insurances Will pull molars [facility] [address] Hours of Operation 8:00 am - 4:30 pm weekdays The following dental offices accept Medicaid: [facility] Dr. Lopez Dr. Matthews Dr. Ma Dr. Cervantes Matteo Mcintyre, Srinivasa, and Lonnie oral surgery Dr. Duenas ([place]) Dr. Hernandez ([place]) [facility] Drs. Wilson ([place]) Dr. Begum ([place]) [facility] Dr. Parson ([place]) Drs. Gomez and ([place]) Medicaid Care Line Forms: Elevated Blood Pressure, Smoking Cessation Education
[2018-08-05] MEDS ORDERED: LIDOCAINE 2% VISCOUS SOLN 20 ML UDCUP PO ONE (23:53)
== END 2018-08-06 00:14 | disposition home or self-care (01) ==
LOC: ER 22:51
DX: K02.9 Dental caries, unspecified (principal); F17.210 Nicotine dependence, cigarettes, uncomplicated
CPT/HCPCS: 99406; 99282; J3490

== ENCOUNTER 2019-01-29 21:38 | Emergency (ER) | payer MEDICAID ==
[2019-01-29] MEDS ORDERED: NORMAL SALINE 1000 ML 1,000 ML IV ONE (21:50)
--- NOTE | 2019-01-29 21:51 | ER Document Report ---
ED Psych Disorder / Suicide - General Stated Complaint: POSSIBLE SEIZURE/OVERDOSE Time Seen by Provider: 01/29/19 21:51 Mode of Arrival: Medic Cannot obtain history due to: Altered mental status Notes: HISTORY OF PRESENT ILLNESS: Patient is a 38-year-old male with a past medical history of chronic substance abuse who presents with agitation and altered mental status after possible overdose of medications. EMS reports that the patient did not unknown amount of heroin and became altered so his significant other gave him an intramuscular injection of Narcan but improved his mental status, however he became bellig erent and agitated. EMS reports that the patient had to be given intramuscular doses of Versed, totaling 7.5 mg, for agitation and combative behavior. Onset: Prior to arrival Provocation: Possible heroin overdose Quality: Agitation, altered mental status Radiation: None Severity: Severe Timing: Constant SI/HI: Unknown Hallucinations: Unknown Current therapist: None Current treatment: None REVIEW OF SYSTEMS: *A complete review of systems is unable to be obtained due to the patient's mental status* CONSTITUTIONAL : Denies fever or chills, no sweats. Denies recent illness. EENT: Denies eye, ear, throat, or mouth pain or symptoms. Denies nasal or sinus congestion. CARDIOVASCULAR: Denies chest pain. RESPIRATORY: Denies cough, cold, or chest congestion. Denies shortness of breath, difficulty breathing, or wheezing. GASTROINTESTINAL: Denies abdominal pain. Denies nausea, vomiting, or diarrhea. Denies constipation. GENITOURINARY: Denies difficulty urinating, painful urination, burning, frequency, or blood in urine. FEMALE GENITOURINARY: Denies vaginal bleeding, abnormal or irregular periods. Last menstrual period MUSCULOSKELETAL: Denies neck or back pain or joint pain or swelling. SKIN: Denies rash or skin lesions. HEMATOLOGIC : Denies easy bruising or bleeding. LYMPHATIC: Denies swollen, enlarged glands. NEUROLOGICAL: Denies altered mental status or loss of consciousness. Denies headache. Denies weakness or paralysis or loss of use of either side. Denies problems with gait or speech. Denies sensory or motor loss. PSYCHIATRIC: Positive for polysubstance abuse. Positive for aggression and combative behavior. All other systems reviewed and negative. PHYSICAL EXAMINATION: GENERAL: Anxious-appearing, well-nourished and in mild acute distress. HEAD: Atraumatic, normocephalic. No scalp deformity, depression, or crepitance. EYES: Pupils are 8mm and equal/round/reactive to light, extraocular movements intact, sclera anicteric, conjunctiva are normal. ENT: Nares patent bilaterally, oropharynx clear without exudates or palatal petechia. Moist mucous membranes. No tonsil hypertrophy. NECK: Normal range of motion, supple without lymphadenopathy. LUNGS: Breath sounds present, equal, and clear to auscultation bilaterally. No wheezes, rales, or rhonchi. HEART: Increased rate, regular rhythm without murmurs, rubs, or gallops. 2+ peripheral pulses. Normal capillary refill. ABDOMEN: Soft, nontender, nondistended. Normoactive bowel sounds. No guarding, no rebound. No masses appreciated. BACK: Normal contour, no midline tenderness. Rectal exam deferred. GENITAL/PELVC: Deferred. EXTREMITIES: Normal range of motion, no pitting or edema. No cyanosis. NEUROLOGICAL: Patient is noncompliant with exam. Moves all extremities in response to pain. PSYCH: Anxious and agitated mood, normal affect. No suicidal thoughts/ideations. No homicidal thoughts/ideations. No hallucinations. SKIN: Warm, dry, normal turgor, no rashes or lesions noted. ASSESSMENT AND PLAN: This patient is a 38-year-old male who presents with possible overdose of unk nown medications or substances. 1. Will obtain labs, urine, drug screen, blood cultures, and lactic acid. 2. Will observe and possibly obtain Poison Control Center recommendations. TRAVEL OUTSIDE OF THE [place]S. IN LAST 30 DAYS: No - Related Data Allergies/Adverse Reactions: spiders Allergy (Uncoded 01/29/19 22:03) Past Medical History - General Information source: Emergency Med Personnel Cannot obtain history due to: Altered mental status - Social History Smoking Status: Current Every Day Smoker Chew tobacco use (# tins/day): No Frequency of alcohol use: Occasional Drug Abuse: Heroin Lives with: Family Family History: Reviewed & Not Pertinent Patient has suicidal ideation: No - Unknown Patient has homicidal ideation: No - Unknown - Past Medical History Cardiac Medical History: Reports: None Pulmonary Medical History: Reports: Hx Asthma, Hx Bronchitis EENT Medical History: Reports: None Neurological Medical History: Reports: None Endocrine Medical History: Reports: None Renal/ Medical History: Reports: None. Denies: Hx Peritoneal Dialysis Malignancy Medical History: Reports None GI Medical History: Reports: None Musculoskeletal Medical History: Reports None Skin Medical History: Reports Hx Cellulitis Psychiatric Medical History: Reports: Other - Substance abuse Traumatic Medical History: Reports: None Infectious Medical History: Reports: None Past Surgical History: Reports: Other - Incision and drainage of a right upper extremity abscess - Immunizations Immunizations up to date: Yes Hx Diphtheria, Pertussis, Tetanus Vaccination: No Physical Exam - Vital signs Vitals: Resp Pulse Ox 34 H 93 01/29/19 21:45 01/29/19 21:45 Course - Re-evaluation Re-evalutation: 01/30/19 04:25 Patient is much improved, however he is still somnolent. His heart rate is much improved, and his blood pressure is normalized. Patient had multiple positive urine drug screen readings. Patient will be placed on involuntary commitment petition given his self-harm behavior. He will be observed for medical clearance until the morning. Signout has been given to Dr. Tillman. - Vital Signs Vital signs: Temp Pulse Resp BP Pulse Ox 98.6 F 19 120/79 94 01/30/19 01:15 01/30/19 02:00 01/30/19 02:00 01/30/19 02:00 - Laboratory Result Diagrams: 01/29/19 21:46 01/29/19 21:46 Laboratory results interpreted by me: 01/29/19 01/29/19 01/29/19 21:46 21:46 21:50 WBC 16.4 H Hgb 13.1 L Hct 37.3 L RDW 14.7 H Seg Neutrophils % 83.5 H Lymphocytes % 6.7 L Absolute Neutrophils 13.7 H Carbonic Acid 1.42 H ABG pCO2 47.3 H ABG pO2 61.2 L ABG HCO3 26.4 H ABG Total CO2 27.9 H ABG O2 Saturation 90.5 L Urine Protein Urine Urobilinogen Salicylates < 1.0 L Acetaminophen < 10 L 01/29/19 22:28 WBC Hgb Hct RDW Seg Neutrophils % Lymphocytes % Absolute Neutrophils Carbonic Acid ABG pCO2 ABG pO2 ABG HCO3 ABG Total CO2 ABG O2 Saturation Urine Protein 30 H Urine Urobilinogen 4.0 H Salicylates Acetaminophen - Diagnostic Test Radiology reviewed: Image reviewed, Reports reviewed - EKG Interpretation by Me EKG shows normal: Sinus rhythm Rate: Tachycardia Rhythm: NSR [place]/QRS: No: Right axis deviation, Left axis deviation, RBBB, LBBB, IVCD, LAHB/LAFB, LPHB/LPFB, Bifasicular block Voltage: No: Increased voltage, Consistant with LVH, Decreased voltage, Throughout, Limb leads P Waves: No: JUDE, LAE, Absent, AV Dissociation, Other Heart block present: No: 1st Degree, Mobitz 1, Mobitz 2, CHB (3rd degree block) When compared to previous EKG there are: No significant change - Transfer of Care Care transferred to following provider: Dr. Tillman Discharge - Discharge Clinical Impression: Altered mental status Qualifiers: Altered mental status type: unspecified Qualified Code(s): R41.82 - Altered mental status, unspecified Intentional drug overdose Qualifiers: Encounter type: initial encounter Qualified Code(s): T50.902A - Poisoning by unspecified drugs, medicaments and biological substances, intentional self-harm, initial encounter Condition: Stable Disposition: PSYCH HOSP/UNIT
[2019-01-29 22:02] LABS: ABSOLUTE EOSINOPHILS # (AUTO) 0.2 10^3/uL (0.0-0.6); ABSOLUTE LYMPHOCYTES (AUTO) 1.1 10^3/uL (0.5-4.7); ABSOLUTE MONOCYTES (AUTO) 1.3 10^3/uL (0.1-1.4); ABSOLUTE NEUT (AUTO) 13.7 10^3/uL (1.7-8.2); BASOPHILS % (AUTO) 0.3 % (0-2); EOSINOPHILS % (AUTO) 1.3 % (0-6); HEMATOCRIT 37.3 % (37.9-51.0); HEMOGLOBIN 13.1 g/dL (13.5-17.0); LYMPHOCYTES % (AUTO) 6.7 % (13-45); MEAN CORPUSCULAR HEMOGLOBIN 28.5 pg (27.0-33.4); MEAN CORPUSCULAR VOLUME 82 fl (80-97); MONOCYTES % (AUTO) 8.2 % (3-13); PLATELET COUNT 334 10^3/uL (150-450); RED BLOOD COUNT 4.58 10^6/uL (4.35-5.55); RED CELL DISTRIBUTION WIDTH 14.7 % (11.5-14.0); SEGMENTED NEUTROPHILS % (AUTO) 83.5 % (42-78); TOTAL CELLS COUNTED % (AUTO) 100 %; WHITE BLOOD COUNT 16.4 10^3/uL (4.0-10.5)
[2019-01-29 22:22] LABS: ALANINE AMINOTRANSFERASE 35 U/L (21-72); ALBUMIN 3.9 g/dL (3.5-5.0); ALKALINE PHOSPHATASE 113 U/L (38-126); ANION GAP 5 (5-19); ASPARTATE AMINO TRANSFERASE 32 U/L (17-59); BILIRUBIN,DIRECT 0.3 mg/dL (0.0-0.4); BILIRUBIN,TOTAL 0.6 mg/dL (0.2-1.3); BLOOD UREA NITROGEN 12 mg/dL (7-20); CALCIUM 9.6 mg/dL (8.4-10.2); CARBON DIOXIDE 27 mmol/L (22-30); CHLORIDE 105 mmol/L (98-107); CREATINE KINASE 82 U/L (55-170); GLUCOSE 95 mg/dL (75-110); POTASSIUM 4.2 mmol/L (3.6-5.0); TOTAL PROTEIN 7.4 g/dL (6.3-8.2)
[2019-01-29 22:24] LABS: ACETAMINOPHEN < 10 ug/mL (10-30); ALCOHOL < 10 mg/dL (NONE DETECTED); SALICYLATE < 1.0 mg/dL (2.0-20.0)
--- NOTE | 2019-01-29 22:39 | RADIOLOGY REPORT (SQ) ---
EXAM DESCRIPTION: [facility]Lex: XR CHEST 1 VIEW CLINICAL HISTORY: 38 years Male, Altered mental status COMPARISON: 02/28/2018 FINDINGS: Lungs are clear, with no focal infiltrate, pneumothorax, or pleural effusion. Mediastinum is within normal limits for this positioning. Bony structures are unremarkable. IMPRESSION: No acute pulmonary findings.
[2019-01-29 22:46] LABS: APPEARANCE,URINE SLIGHTLY-CLOUDY; BILIRUBIN,URINE NEGATIVE (NEGATIVE); GLUCOSE, URINE NEGATIVE (NEGATIVE); KETONES,URINE NEGATIVE (NEGATIVE); LEUKOCYTE ESTERASE,URINE NEGATIVE (NEGATIVE); NITRITE,URINE NEGATIVE (NEGATIVE); PROTEIN,URINE 30 mg/dL (NEGATIVE); URINE SPECIFIC GRAVITY 1.025
[2019-01-29 22:47] LABS: COLOR,URINE YELLOW
[2019-01-29 22:47] LABS: ARTERIAL BLOOD BASE EXCESS 0.5 mmol/L; ARTERIAL BLOOD FIO2 21%; ARTERIAL BLOOD H2CO3 1.42 mmol/L (1.05-1.35); ARTERIAL BLOOD HCO3 26.4 mmol/L (20-24); ARTERIAL BLOOD O2 SATURATION 90.5 % (94-98); ARTERIAL BLOOD PCO2 47.3 mmHg (35-45); ARTERIAL BLOOD PH 7.37 (7.35-7.45); ARTERIAL BLOOD PO2 61.2 mmHg (80-100); ARTERIAL BLOOD TOTAL CO2 27.9 mmol/L (23-27)
[2019-01-29 22:59] LABS: URINE BARBITURATES SCREEN NEGATIVE; URINE BENZODIAZEPINES SCREEN UNCONFIRMED POSITIVE; URINE COCAINE SCREEN UNCONFIRMED POSITIVE; URINE MARIJUANA (THC) SCREEN NEGATIVE; URINE METHADONE SCREEN NEGATIVE; URINE PHENCYCLIDINE SCREEN NEGATIVE
--- NOTE | 2019-01-30 01:17 | RADIOLOGY REPORT (SQ) ---
EXAM DESCRIPTION: CT HEAD WITHOUT IV CONTRAST COMPLETED DATE/TME: 01/30/2019 00:29 CLINICAL HISTORY: 38 years, Male, Altered mental status COMPARISON: None. TECHNIQUE: Axial images of the head were performed without the use of intravenous contrast, with sagittal and coronal reformatted images. Images stored on PACS. All CT scanners at this facility use dose modulation, iterative reconstruction, and/or weight based dosing when appropriate to reduce radiation dose to as low as reasonably achievable (ALARA). [facility]: Dose Right [facility]: CareDose [facility]: Dose Right [facility]: Teradose 4D [facility]: [employer] Technologies LIMITATIONS: None. FINDINGS: No evidence of acute hemorrhage or infarct. No evidence of mass or hydrocephalus. The visualized paranasal sinuses are clear. IMPRESSION: No acute finding. TECHNICAL DOCUMENTATION: Quality ID # [id number]: Final reports with documentation of one or more dose reduction techniques (e.g., Automated exposure control, adjustment of the mA and/or kV according to patient size, use of iterative reconstruction technique) copyright 2011 [employer]- All Rights Reserved
[2019-01-30] MEDS ORDERED: NORMAL SALINE 1000 ML 1,000 ML IV ONE (04:24)
[2019-01-30] MEDS ORDERED: ONDANSETRON HCL INJ/PF 4 MG/2 ML SDV ONE (05:16)
[2019-01-30] MEDS ORDERED: ONDANSETRON HCL INJ/PF 4 MG/2 ML SDV IV ONE (05:21)
[2019-01-30 09:10] VITALS: BP 112/67
--- NOTE | 2019-01-30 10:22 | EKG REPORT ---
SEVERITY:- BORDERLINE ECG - SINUS TACHYCARDIA PROBABLE LEFT ATRIAL ABNORMALITY : Confirmed by: Eloina Ambrosio 30-Jan-2019 10:21:49
[2019-01-30 11:32] LABS: ABSOLUTE EOSINOPHILS # (AUTO) 0.1 10^3/uL (0.0-0.6); ABSOLUTE LYMPHOCYTES (AUTO) 1.4 10^3/uL (0.5-4.7); ABSOLUTE MONOCYTES (AUTO) 0.7 10^3/uL (0.1-1.4); BASOPHILS % (AUTO) 0.3 % (0-2); HEMATOCRIT 41.8 % (37.9-51.0); HEMOGLOBIN 14.7 g/dL (13.5-17.0); LYMPHOCYTES % (AUTO) 13.9 % (13-45); MEAN CORPUSCULAR HEMOGLOBIN 28.9 pg (27.0-33.4); MEAN CORPUSCULAR HGB CONC 35.1 g/dL (32.0-36.0); MEAN CORPUSCULAR VOLUME 82 fl (80-97); MONOCYTES % (AUTO) 6.7 % (3-13); PLATELET COUNT 344 10^3/uL (150-450); RED BLOOD COUNT 5.07 10^6/uL (4.35-5.55); RED CELL DISTRIBUTION WIDTH 14.9 % (11.5-14.0); SEGMENTED NEUTROPHILS % (AUTO) 78.1 % (42-78); TOTAL CELLS COUNTED % (AUTO) 100 %; WHITE BLOOD COUNT 10.2 10^3/uL (4.0-10.5)
[2019-01-30 11:56] LABS: ALANINE AMINOTRANSFERASE 32 U/L (21-72); ALBUMIN 4.1 g/dL (3.5-5.0); ALKALINE PHOSPHATASE 129 U/L (38-126); ANION GAP 9 (5-19); ASPARTATE AMINO TRANSFERASE 32 U/L (17-59); BILIRUBIN,DIRECT 0.3 mg/dL (0.0-0.4); BILIRUBIN,TOTAL 0.8 mg/dL (0.2-1.3); BLOOD UREA NITROGEN 8 mg/dL (7-20); CALCIUM 10.6 mg/dL (8.4-10.2); CARBON DIOXIDE 25 mmol/L (22-30); CHLORIDE 109 mmol/L (98-107); GLUCOSE 105 mg/dL (75-110); POTASSIUM 4.6 mmol/L (3.6-5.0); SODIUM 142.7 mmol/L (137-145); TOTAL PROTEIN 8.2 g/dL (6.3-8.2)
[2019-01-30] MEDS ORDERED: LIDOCAINE 1% INJ-PF (10 MG/ML) 30 ML SDV ONE (13:41)
--- NOTE | 2019-01-30 15:01 | PSYCHOLOGICAL NOTE ---
Psych Note - Psych Note Date seen by psych provider: 01/30/19 Time seen by psych provider: 08:06 - Observation of patient and interaction with medical staff from [id number]. collateral from [id number]. Evaluation with patient at 1618. Psych Note: Reason for Consult: OD of Crack/Cocaine and Heroin Contact Permissions: Alfonso Owen [phone] for collateral Patient is a 38 year old male who presented to the ED last evening via EMS for OD of Crack/Cocaine and Heroin. Reportedly found him unresponsive, had to Narcan him and then called 06-22-. Observed patient asleep in bed initially. When attending nursing staff went in to clean patient, bed and patient (he had urinated on self) he tried standing on the bed, was trying to talk but it was mumbled, he kept apologizing and saying sorry and he did listen to commands which required lots of prompting and physical guidance by medical staff. UDS positive for amphetamine/meth, benzodiazepines, cocaine and opiates. Obtained collateral from via telephone. She confirmed she found patient unresponsive and administered Narcan. She stated "it worked for a minute, he responded but was not making sense and fell back out." She stated he had been using for awhile, last time she was aware was October 2017. She denied previous detox or treatment for SA. She stated "I have no idea to be honest" when asked what she thought patient was using. She denied MH history. She stated she did not think this was a SI attempt and in the 6 years they have been together he has never done anything to harm/hurt/kill self. She denied any serious medical issues. She noted when patient is baseline he can have conversations and make sense. Patient finally woke up around 1600. He was able to make eye contact, answer questions appropriately and was more alert and oriented. He denied drug use until confronted about UDS. Then he stated "I thought I was just taking a pill." He denied SA history. He denied any SA problem or wanting linkage to detox/treatment. He stated "I'm fine now." He denied SI/HI. Confronted patient that it took him almost 24 hours to become baseline, that significant medical procedures (Lumbar Puncture) were performed for concern of patient's presentation and length of it, his found him unresponsive/had to Narcan him/he came around but not for long so she called --, that this was considered an OD for which he could have and what would that mean for his and the kids that were heard in the background when this clinician contacted her earlier. 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 Patient is cleared from acute psychiatric services. He denied SI/HI and no observed psychosis by almost dinner time. He was recommended to do SA follow up treatment outpatient at the very least. He denied having a SA problem or wanting linkage to detox/treatment/supports. He was provided with the outpatient SA resource sheet which highlighted IFS MCM for crisis/talk therapy/as a link to voluntary detox/linkage to other supports and services, [facility] detox location/[place] detox location and listed [facility] contact information for outpatient follow up (also listed walk in M-F from [phone]). Nursing staff contacted for transportation. Consulted with Dr. Madera regarding the management and care of patient. ED Physician in agreement with recommendations.
--- NOTE | 2019-01-30 15:19 | RADIOLOGY REPORT (SQ) ---
EXAM DESCRIPTION: FLUORO/NEEDLE PLACEMENT; LUMBAR PUNCTURE COMPLETED DATE/TIME: 01/30/2019 3:00 pm; 01/30/2019 3:01 pm REASON FOR STUDY: altered mental status, leukocytosis COMPARISON: None. FLUOROSCOPY TIME: 0.4 minutes 1 images saved to PACS. TECHNIQUE: Fluoroscopic guided lumbar puncture. LIMITATIONS: None. PROCEDURE: After written consent and assessment were obtained, the patient was brought into the fluo roscopy room and placed prone on the table. The patient's lower back was prepped in a sterile fashio n and an entry site was selected under live fluoroscopic guidance. The entry site was anesthetized wi th 1% lidocaine. A 22 gauge needle was advanced through the skin and into the thecal sac at the level of L4-L5. After approximately 5 ml was drained, the needle was removed and a sterile bandage was nicanor parvin of the site. Specimens were sent to the lab for testing. A fluoroscopic spot image was saved to PACS confirming level access. FINDINGS: Clear CSF IMPRESSION: Lumbar puncture under fluoroscopy. No immediate complication. COMMENT: Patient medication list reviewed: Yes- Quality ID# 130:Eligible professional attests to doc umenting in the medical record they obtained, updated, or reviewed the patient's current medications. . Quality ID 145: Final reports for procedures using fluoroscopy that document radiation exposure ginette mata, or exposure time and number of fluorographic images (if radiation exposure indices are not avail able) TECHNICAL DOCUMENTATION: JOB ID: [id number] [employer]- All Rights Reserved Reading location - IP/workstation name: [email or web address]
[2019-01-30 15:20] LABS: GLUCOSE,CSF 65 mg/dL (40-70); PROTEIN,CSF 53 mg/dL (12-60)
[2019-01-30 15:27] LABS: APPEARANCE ALL TUBES CLEAR; COLOR ALL TUBES COLORLESS; CSF TOTAL VOLUME 4.9 CC; CSF TUBE NUMBER 1; RED BLOOD CELL,CSF 4 /uL (0-10); VOLUME TUBE 1 1.5 CC; VOLUME TUBE 3 1.2 CC; VOLUME TUBE 4 1.2 CC
[2019-01-30 15:30] LABS: WHITE BLOOD CELL,CSF 6 /uL (0-5)
[2019-01-30 15:31] LABS: APPEARANCE ALL TUBES CLEAR; COLOR ALL TUBES COLORLESS; CSF TOTAL VOLUME 4.9 CC; CSF TUBE NUMBER 4; VOLUME TUBE 1 1.5 CC; VOLUME TUBE 3 1.2 CC; VOLUME TUBE 4 1.2 CC
[2019-01-30 15:32] LABS: RED BLOOD CELL,CSF 8 /uL (0-10)
[2019-01-30 15:34] LABS: WHITE BLOOD CELL,CSF 0 /uL (0-5)
--- NOTE | 2019-01-30 17:52 | ER Document Report ---
Entered by ANAYA LICEA SCRIBE 01/30/19 [id number] Acting as scribe for:MALATHI DANIEL DO Doctor's Note Notes: 01/30/19 16:11 On initial examination patient was still quite disoriented, could only repeat back to me [place], could not answer any other questions other than location. I was quite concerned by his elevated white blood cell count and continuing confusion. Lumbar puncture was performed under fluoroscopy by radiology. This did not reveal any signs of subarachnoid hemorrhage or meningitis or encephalitis. Patient has been rechecked and is now patient awake and oriented x4, stating he does not remember anything that happened yesterday. Patient states he is no longer suicidal or depressed and does not want any help with drug usage. Patient states that he does not use drugs regularly but also does not deny using them yesterday. Patient is medically cleared, discussed with psychology, they also agree that the patient is clear from a psych standpoint. Patient adamantly denies wanting any help with drug usage. Patient discharged home with outpatient resources. I personally performed the services described in the documentation, reviewed and edited the documentation which was dictated to the scribe in my presence, and it accurately records my words and actions.
== END 2019-01-30 17:50 | disposition home or self-care (01) ==
LOC: ER 21:38
DX: T40.1X2A Poisoning by heroin, intentional self-harm, initial encounter (principal); T40.5X2A Poisoning by cocaine, intentional self-harm, initial encounter; R40.0 Somnolence; Y92.003 Bedroom of unspecified non-institutional (private) residence as the place of occurrence of the external cause; D72.829 Elevated white blood cell count, unspecified; R41.0 Disorientation, unspecified; Z91.038 Other insect allergy status; F17.200 Nicotine dependence, unspecified, uncomplicated; J45.909 Unspecified asthma, uncomplicated
CPT/HCPCS: 93005; 99285; 96361; 96374; 36415; 87040; 87070; 87205; 80307 ×5; 82803; 82550; 85025; 89050; 82945; 84157; 87077; 80053; 81001; 84484; 87186; 83605; 71045; 77002; 62270; 70450; 93010; C1758; G0480; J3490; J2405; J7030 ×2

== ENCOUNTER 2019-12-10 22:24 | Emergency (ER) | payer MEDICAID ==
[2019-12-11] MEDS ORDERED: LIDOCAINE 1%/EPINEPHRINE INJ 20 ML VIAL INJ ONE (00:01)
--- NOTE | 2019-12-11 00:15 | ER Document Report ---
ED Medical Screen (RME) - General Chief Complaint: Abscess Stated Complaint: LEFT ARM ABSCESS Time Seen by Provider: 12/11/19 00:01 Notes: Patient is a 39-year-old male with a history of IV drug abuse who presents the emergency department with an abscess to his left forearm. He denies any fevers, body aches, chills, or any other symptoms. Patient states that he has been clean and is going to the methadone clinic. Exam: Large abscess noted to left forearm. I have greeted and performed a rapid initial assessment of this patient. A comprehensive ED assessment and evaluation of the patient, analysis of test results and completion of medical decision making process will be conducted by an additional ED providers. TRAVEL OUTSIDE OF THE [place] IN LAST 30 DAYS: No - Related Data Allergies/Adverse Reactions: spiders Allergy (Uncoded 01/29/19 22:03) Home Medications: methadone 23 mg qday Past Medical History - Social History Drug Abuse: Heroin Pulmonary Medical History: Reports: Hx Asthma, Hx Bronchitis Renal/ Medical History: Denies: Hx Peritoneal Dialysis Skin Medical History: Reports Hx Cellulitis Past Surgical History: Reports: Other - Incision and drainage of a right upper extremity abscess - Immunizations Immunizations up to date: Yes Hx Diphtheria, Pertussis, Tetanus Vaccination: No Physical Exam - Vital signs Vitals: Temp Pulse Resp BP Pulse Ox 98.0 F 66 16 108/64 99 12/10/19 22:39 12/10/19 22:39 12/10/19 22:39 12/10/19 22:39 12/10/19 22:39 Course - Vital Signs Vital signs: Temp Pulse Resp BP Pulse Ox 98.0 F 66 16 108/64 99 12/10/19 22:39 12/10/19 22:39 12/10/19 22:39 12/10/19 22:39 12/10/19 22:39
[2019-12-11 02:37] VITALS: BP 108/63
[2019-12-11] MEDS ORDERED: LIDOCAINE 1%/EPINEPHRINE INJ 20 ML VIAL ONE (03:25)
--- NOTE | 2019-12-11 03:38 | ER Document Report ---
ED Skin Rash/Insect Bite/Abscs - General Chief Complaint: Abscess Stated Complaint: LEFT ARM ABSCESS Time Seen by Provider: 12/11/19 00:01 Notes: Patient is a 39-year-old male that comes to the emergency department for chief complaint of a left arm abscess. Abscesses in the left forearm, he states it has been worsening for over a week now. He denies drainage from the area, he denies fever or chills, he denies any other complaints. Tetanus up-to-date within 5 years reportedly. Patient denies any IV drug abuse within the past year. Patient is on methadone. He states that he had a similar abscess on the right forearm about 2 years ago that required drainage and antibiotics from the emergency department. Significant other at bedside. TRAVEL OUTSIDE OF THE [place] IN LAST 30 DAYS: No - Related Data Allergies/Adverse Reactions: spiders Allergy (Uncoded 01/29/19 22:03) Home Medications: methadone 23 mg qday Past Medical History - General Information source: Patient - Social History Smoking Status: Current Every Day Smoker Drug Abuse: Heroin Lives with: Spouse/Significant other Family History: Reviewed & Not Pertinent Patient has suicidal ideation: No Patient has homicidal ideation: No Pulmonary Medical History: Reports: Hx Asthma, Hx Bronchitis Renal/ Medical History: Denies: Hx Peritoneal Dialysis Skin Medical History: Reports Hx Cellulitis Past Surgical History: Reports: Other - Incision and drainage of a right upper extremity abscess - Immunizations Immunizations up to date: Yes Hx Diphtheria, Pertussis, Tetanus Vaccination: No Review of Systems - Review of Systems Constitutional: No symptoms reported EENT: No symptoms reported Cardiovascular: No symptoms reported Respiratory: No symptoms reported Gastrointestinal: No symptoms reported Genitourinary: No symptoms reported Male Genitourinary: No symptoms reported Musculoskeletal: See HPI Skin: See HPI Hematologic/Lymphatic: No symptoms reported Neurological/Psychological: No symptoms reported Physical Exam - Vital signs Vitals: Temp Pulse Resp BP Pulse Ox 98.0 F 66 16 108/64 99 12/10/19 22:39 12/10/19 22:39 12/10/19 22:39 12/10/19 22:39 12/10/19 22:39 - Notes Notes: GENERAL: Alert, interacts well. No acute distress. HEAD: Normocephalic, atraumatic. EYES: Pupils equal, round, and reactive to light. Extraocular movements intact. ENT: Oral mucosa moist, tongue midline. Oropharynx unremarkable. Airway patent. LUNGS: Clear to auscultation bilaterally, no wheezes, rales, or rhonchi. No respiratory distress. HEART: Regular rate and rhythm. No murmur ABDOMEN: Soft, non-tender. Non-distended. Bowel sounds present in all 4 quadrants. GENITOURINARY: Deferred EXTREMITIES: There is a large approximately 4 cm fluctuant swollen abscess over the left mid forearm with some mild surrounding erythema. No streaking up the arm. 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 Normal upper extremity exam otherwise. BACK: no cervical, thoracic, lumbar midline tenderness. No saddle anesthesia, normal distal neurovascular exam. Moves all extremities in full range of motion. NEUROLOGICAL: Alert and oriented x3. Normal speech. Cranial nerves II through XII grossly intact. PSYCH: Normal affect, normal mood. SKIN: Warm, dry, normal turgor. No rashes or lesions noted. See extremities exam above Course - Re-evaluation Re-evalutation: Patient has a large abscess over the left mid forearm but this does not extend up to either joint, there is no streaking away from the area, patient is afebrile, patient is not a diabetic. I did recommend an x-ray of the arm to evaluate for needle but patient refused. I discussed options for incision and drainage. Patient is requesting conscious sedation. I did discuss with Dr. Villalobos, he evaluated the patient at bedside, he states he does not feel it is appropriate that patient have constipation performed due to the risks of conscious sedation compared to the isolated abscess on the forearm. Patient does state understanding. I discussed with patient. He was given IM Dilaudid, Phenergan p.o., and we placed LMX over the area. Discussed using lidocaine versus simply opening the area, decision was made to simply perform an incision over the area numbed with LMX, patient tolerated this very well. Very large amount of purulent material was expressed. Area was cleaned and dressed. Patient placed on antibiotics. Discussed care, follow-up, return precautions. Patient does state appreciation and agreement with plan. Stable at time of discharge. - Vital Signs Vital signs: Temp Pulse Resp BP Pulse Ox 97.5 F 58 L 14 108/63 99 12/11/19 02:35 12/11/19 02:35 12/11/19 02:35 12/11/19 02:35 12/11/19 02:35 Procedures - Incision and Drainage left forearm Type: Single Anesthetic type: Other - LMX I&D procedure: Shurclens applied, Sterile dressing applied Incision Method: Incision made by scalpel Amount/type of drainage: almost 10 cc of purulent drainage Discharge - Discharge Clinical Impression: Abscess of left forearm Condition: Stable Disposition: HOME, SELF-CARE Additional Instructions: The abscess has been drained. Clean the area with soap and water, apply absorbent dressings over the area. Take antibiotics as prescribed to completion. Follow-up with primary care. Return for any concerning or worsening symptoms including spreading redness, spiking fevers, vomiting, or any other concerning or worsening symptoms. Prescriptions: Sulfamethoxazole/Trimethoprim [Bactrim Ds Tablet] 1 each PO BID #14 tablet Cephalexin Monohydrate [Keflex 500 mg Capsule] 500 mg PO QID #28 capsule Forms: Return to Work
[2019-12-11] MEDS ORDERED: HYDROMORPHONE HCL INJ/PF 2 MG/ML AMPULE IM ONE (03:50)
[2019-12-11] MEDS ORDERED: LIDOCAINE 4% CREAM 5 GM TUBE TP ONE (03:50)
[2019-12-11] MEDS ORDERED: SULFAMETHOXAZOLE/TRIMETHOPRIM 800-160 MG TABLET PO ONE (03:51)
[2019-12-11] MEDS ORDERED: CEPHALEXIN 500 MG CAPSULE PO ONE (03:51)
[2019-12-11] MEDS ORDERED: PROMETHAZINE HCL 25 MG TABLET PO ONE (03:51)
[2019-12-11] MEDS ORDERED: LIDOCAINE 4% CREAM 5 GM TUBE ONE (04:04)
[2019-12-11] MEDS ORDERED: PROMETHAZINE HCL 25 MG TABLET ONE (04:04)
[2019-12-11] MEDS ORDERED: SULFAMETHOXAZOLE/TRIMETHOPRIM 800-160 MG TABLET ONE (04:04)
[2019-12-11] MEDS ORDERED: CEPHALEXIN 500 MG CAPSULE ONE (04:04)
[2019-12-11] MEDS ORDERED: HYDROMORPHONE HCL INJ/PF 2 MG/ML AMPULE ONE (04:05)
== END 2019-12-11 05:11 | disposition home or self-care (01) ==
LOC: ER 22:24
PROC: 0H9EXZZ Drainage of Left Lower Arm Skin, External Approach (ICD-10-PCS; principal; 2019-12-10)
DX: L02.414 Cutaneous abscess of left upper limb (principal); Z79.899 Other long term (current) drug therapy; F17.200 Nicotine dependence, unspecified, uncomplicated; J45.909 Unspecified asthma, uncomplicated
CPT/HCPCS: 96372; 99283; J3490